=== PATIENT | male | born 1960 | race Caucasian/White ===

== ENCOUNTER 2018-12-04 23:22 | Inpatient (IN) | payer BC ==
[~2018-12-04] VITALS: Ht 172.7 cm; Wt 87.7 kg
[2018-12-05 00:01] LABS: BASOPHILS ABSOLUTE AUTO 0.02 K/mm3 (0.00-0.23); BASOPHILS PERCENT AUTO 0 % (0-2); EOSINOPHILS ABSOLUTE AUTO 0.14 K/mm3 (0.00-0.68); EOSINOPHILS PERCENT AUTO 2 % (0-6); Hematocrit 47.7 % (37.0-53.0); Hemoglobin 16.3 g/dL (13.5-17.5); IMMATURE GRAN ABSOLUTE AUTO 0.01 K/mm3 (0.00-0.10); IMMATURE GRAN PERCENT AUTO 0 % (0-1); LYMPHOCYTES ABSOLUTE AUTO 1.56 K/mm3 (0.84-5.20); LYMPHOCYTES PERCENT AUTO 24 % (21-46); MONOCYTES ABSOLUTE AUTO 0.45 K/mm3 (0.16-1.47); MONOCYTES PERCENT AUTO 7 % (4-13); Mean Corpuscular HGB 30.1 pg (26.0-34.0); Mean Corpuscular HGB Conc 34.2 g/dL (31.5-36.5); Mean Corpuscular Volume 88 fL (80-100); Mean Platelet Volume 8.8 fL (9.1-12.4); NEUTROPHILS ABSOLUTE AUTO 4.43 K/mm3 (1.96-9.15); NEUTROPHILS PERCENT AUTO 67 % (41-73); Platelet Count 272 K/mm3 (150-400); RDW Coefficient Variation 13.2 % (11.7-14.2); RDW Standard Deviation 42.8 fL (35.1-46.3); Red Blood Cell Count 5.41 M/mm3 (4.30-5.90); White Blood Cell Count 6.61 K/mm3 (4.00-11.30)
[2018-12-05 00:23] LABS: Alanine Aminotransfer (ALT/SGP 37 U/L (12-78); Albumin, Blood 4.2 g/dL (3.4-5.0); Albumin/Globulin Ratio 1.1 (0.8-1.8); Alk Phos 78 U/L (50-136); Anion Gap 11 mmol/L (6-16); Aspartate Aminotrans (AST/SGOT 24 U/L (12-37); Bilirubin, Total 0.9 mg/dL (0.1-1.0); Blood Urea Nitrogen 22 mg/dL (8-24); Bun/Creatinine Ratio 22.2 (12.0-20.0); CO2, Blood 24 mmol/L (21-32); Calcium, Blood 9.1 mg/dL (8.5-10.1); Chloride, Blood 108 mmol/L (98-108); Creatinine, Blood 0.99 mg/dL (0.60-1.20); Globulin, Blood 3.7 g/dL (2.2-4.0); Glomerular Filtration Rate >60 (60-); Glucose, Blood 103 mg/dL (70-99); Potassium, Blood 3.2 mmol/L (3.5-5.5); Sodium, Blood 143 mmol/L (136-145); Total Protein, Blood 7.9 g/dL (6.4-8.2)
[2018-12-05] MEDS ORDERED: ATORVASTATIN CA80 MG PO (01:55)
[2018-12-05] MEDS ORDERED: METO25 PO (01:55)
[2018-12-05 03:35] LABS: International Normalized Ratio 0.93; Prothrombin Time Results 9.9 Sec (9.7-11.5)
--- NOTE | 2018-12-05 05:48 | NUR ---
PCU ADMIT NOC SHIFT SUMMARY PATIENT ARRIVED TO UNIT FROM ER AT APPROX 0320. PATIENT AMBULATED W/ STEADY GAIT TO UNIT BED FROM [facility]. PATIENT DENIES ANY CHEST PAIN/PRESSURE OR DISCOMFORT - PATIENT REMAINS IN NSR TO SINUS BERTHA IN THE 50-60'S T/O SHIFT WITH NO CARDIAC EVENTS NOTED PER [employer] GUIDANCE COUNSELOR (CADENCE). HEPARIN GTT START AND PATIENT MEDICATED PER EMAR.PATIENT RESTING WELL W/ AT BEDSIDE T/O SHIFT. PATIENT ALERT AND ORIENTED X4. CALL LIGHT W/I REACH. PATIENT INDPENDANT IN ROOM; REMAINS AT BEDSIDE. WILL CONTINUE TO MONITOR AND GIVE REPORT TO DAYSHIFT RN.
[2018-12-05 08:02] LABS: Hematocrit 46.9 % (37.0-53.0); Hemoglobin 16.2 g/dL (13.5-17.5); Mean Corpuscular HGB Conc 34.5 g/dL (31.5-36.5); Mean Corpuscular Volume 87 fL (80-100); Platelet Count 285 K/mm3 (150-400); RDW Coefficient Variation 13.3 % (11.7-14.2); RDW Standard Deviation 41.7 fL (35.1-46.3); White Blood Cell Count 7.83 K/mm3 (4.00-11.30)
[2018-12-05 08:10] LABS: Alanine Aminotransfer (ALT/SGP 33 U/L (12-78); Albumin/Globulin Ratio 1.2 (0.8-1.8); Alk Phos 76 U/L (50-136); Anion Gap 7 mmol/L (6-16); Aspartate Aminotrans (AST/SGOT 31 U/L (12-37); Bilirubin, Total 1.3 mg/dL (0.1-1.0); Blood Urea Nitrogen 20 mg/dL (8-24); Bun/Creatinine Ratio 22.6 (12.0-20.0); CO2, Blood 24 mmol/L (21-32); Calcium, Blood 9.2 mg/dL (8.5-10.1); Chloride, Blood 111 mmol/L (98-108); Creatinine, Blood 0.89 mg/dL (0.60-1.20); Globulin, Blood 3.3 g/dL (2.2-4.0); Glomerular Filtration Rate >60 (60-); Glucose, Blood 115 mg/dL (70-99); Sodium, Blood 142 mmol/L (136-145); Total Protein, Blood 7.3 g/dL (6.4-8.2)
[2018-12-05 08:32] LABS: Troponin I 0.992 ng/mL (0.000-0.040)
--- NOTE | 2018-12-05 08:40 | NUR ---
AM NOTE. ASSUMED CARE OF PT APROX 0700. PT IS A&Ox4 AND IND IN THE ROOM. PT WAS ADMITTED FOR NSTEMI W/ELEVATED TROPONINS. PT HAS BEEN HYPERTENSIVE. PT DENIES ANY CHEST PAIN AT THIS TIME. L/S CLEAR T/O, PT IS ON RA WITH O2 SATS >95%. BT PRESENT AND HYPERACTIVE, ABD IS SOFT AND NONTENDER TO PALP. PT IS IN NO DITRESS AT THIS TIME. PT'S IS AT THE BEDSIDE. CALL LIGHT IN REACH, BED IS LOCKED AND LOW WILL CONTINUE TO MONITOR.
--- NOTE | 2018-12-05 12:03 | NUR ---
ASSUMED CARE OF PATIENT AT APROX 1200, PT IN PHYSICIAN SUPPORT COORDINATOR AT THIS TIME.
--- NOTE | 2018-12-05 13:20 | NUR ---
PT RETURNED TO ROOM AT APROX 1230 FROM [facility].
[2018-12-05 14:18] LABS: Troponin I 2.94 ng/mL (0.000-0.040)
--- NOTE | 2018-12-05 15:34 | NUR ---
Echocardiogram completed.
--- NOTE | 2018-12-05 18:01 | NUR ---
SHIFT SUMMARY PT POST-PROCEDURE FOR PLACEMENT OF LAD STENTS. R RADIAL SITE HAD INCREASED SWELLING/FIRMNESS AT APROX [address] BAND PLACED ABOVE FIRST ONE. MEDICATED FOR CP WITH NITRO ONCE PER EMAR. 2ND TR BAND DEFLATED AND REMOVED AT APROX 1745, 1ST BAND IS BEING DEFLATED 2CC EVERY 20 MIN PER [employer] SALESMAN STARTED AT 1745. BAND WILL REMAIN IN PLACE FOR ONE HOUR FOLLOWING COMPLETE DEFLATION. TOLERATING PO WITH NO C/O N/V. PT AWARE OF RESTRICTIONS TO R WRIST, ARMBOARD IN PLACE.
[2018-12-05 21:21] LABS: Creatine Kinase MB 19.3 ng/mL (0.0-3.6); Creatine Kinase MB Index 11.3 (0.0-4.0)
[2018-12-05 21:23] LABS: Troponin I 2.91 ng/mL (0.000-0.040)
--- NOTE | 2018-12-05 21:29 | NUR ---
PCU ASSUMED CARE (NOC SHIFT) PATIENT ALERT AND ORIENTED X4 AND INDEPENDENT IN THE ROOM. PATIENT DENIES ANY CHEST PAIN OR DISCOMFORT AT THIS TIME. RESTING IN UNIT BED WITH PATIENT. LUNG SOUNDS CLEAR, RESPIRATIONS E/U ON ROOM AIR AND VSS. ARM BOARD IN PLACE ON RIGHT RADIAL SITE. TR BAND REMOVED. SMALL HEMATOMA NOTED, UNCHANGED FROM DAYSHIFT REPORT. CALL LIGHT W/I REACH. WILL CONTINUE TO MONITOR.
[2018-12-06 03:46] LABS: BASOPHILS ABSOLUTE AUTO 0.02 K/mm3 (0.00-0.23); BASOPHILS PERCENT AUTO 0 % (0-2); EOSINOPHILS ABSOLUTE AUTO 0.11 K/mm3 (0.00-0.68); EOSINOPHILS PERCENT AUTO 1 % (0-6); Hematocrit 43.1 % (37.0-53.0); Hemoglobin 14.2 g/dL (13.5-17.5); IMMATURE GRAN ABSOLUTE AUTO 0.01 K/mm3 (0.00-0.10); IMMATURE GRAN PERCENT AUTO 0 % (0-1); LYMPHOCYTES ABSOLUTE AUTO 0.97 K/mm3 (0.84-5.20); LYMPHOCYTES PERCENT AUTO 12 % (21-46); MONOCYTES ABSOLUTE AUTO 0.62 K/mm3 (0.16-1.47); MONOCYTES PERCENT AUTO 8 % (4-13); Mean Corpuscular HGB 29.5 pg (26.0-34.0); Mean Corpuscular HGB Conc 32.9 g/dL (31.5-36.5); Mean Corpuscular Volume 89 fL (80-100); Mean Platelet Volume 9.2 fL (9.1-12.4); NEUTROPHILS ABSOLUTE AUTO 6.34 K/mm3 (1.96-9.15); NEUTROPHILS PERCENT AUTO 79 % (41-73); Platelet Count 239 K/mm3 (150-400); RDW Coefficient Variation 13.8 % (11.7-14.2); RDW Standard Deviation 44.7 fL (35.1-46.3); Red Blood Cell Count 4.82 M/mm3 (4.30-5.90); White Blood Cell Count 8.07 K/mm3 (4.00-11.30)
[2018-12-06 04:09] LABS: Albumin, Blood 3.4 g/dL (3.4-5.0); Anion Gap 4 mmol/L (6-16); Blood Urea Nitrogen 24 mg/dL (8-24); Bun/Creatinine Ratio 20.7 (12.0-20.0); CHOL/HDL RATIO 3.5; CO2, Blood 29 mmol/L (21-32); Calcium, Blood 8.5 mg/dL (8.5-10.1); Chloride, Blood 110 mmol/L (98-108); Cholesterol 165 mg/dL (50-200); Creatinine, Blood 1.16 mg/dL (0.60-1.20); Glomerular Filtration Rate >60 (60-); Glucose, Blood 106 mg/dL (70-99); HDL Cholesterol 47 mg/dL (>39); LDL/HDL RATIO 1.7; Low Density Lipoprotein Chol 81 mg/dL (0-110); Sodium, Blood 143 mmol/L (136-145); Triglycerides 185 mg/dL (30-160); Very Low Density Lipoprot Chol 37 mg/dL (6-32)
--- NOTE | 2018-12-06 04:42 | NUR ---
PCU NOC SHIFT SUMMARY PATIENT REMAINS ALERT AND ORIENTED X4. DENIES ANY CHEST PAIN OR PRESSURE. ARM BOARD REMAINS IN PLACE ON RIGHT RADIAL WRIST SITE, TEGADERM IN PLACE. NO CHANGE NOTED TO HEMATOMA (SINCE SHIFT CHANGE), NO BLEEDING OR ADDITIONAL SWELLING NOTED. PATIENT SLEPT WELL T/O THE SHIFT WITH AT BEDSIDE. CALL LIGHT W/I REACH, WILL CONTINUE TO MONITOR AND REPORT TO DAYSHIFT RN.
--- NOTE | 2018-12-06 07:27 | NUR ---
Bedside report was received from Natacha Biswas RN. The pt is ambulatory, without any distress or discomfort at this time. Right wrist site from angiogram is swollen, soft, and has an area of bruising about the size of a silver dollar. He denies any pain. NO hematoma, no bleeding noted.
[2018-12-06] MEDS ORDERED: Isosorbide Mono30 MG PO (10:45)
[2018-12-06] MEDS ORDERED: LISI20 PO (10:46)
[2018-12-06] MEDS ORDERED: BRILINTA90 MG PO (10:47)
[2018-12-06] MEDS ORDERED: ASPI81CH PO (10:47)
--- NOTE | 2018-12-06 11:29 | NUR ---
DISCHARGE NOTE PT DISCHARGED AMBULATORY POV WITH FAMILY AND IN NO ACUTE DISTRESS. PT AND FAMILY VERBALIZED UNDERSTANDING OF MEDICATION AND FOLLOW UP INSTRUCTIONS. ALL BELONGINGS SENT HOME WITH PATIENT. IV DISCONTINUED INTACT.
== END 2018-12-06 11:33 | disposition home or self-care (01) | DRG 247 ==
LOC: ER 23:22 → PCU 23:23 → ER 23:23 → PCU 23:24
PROVIDERS: Emergency Medicine; Internal Medicine; Internal Medicine Interventional Cardiology; ADMIT Internal Medicine
PROC: 027034Z Dilation of Coronary Artery, One Artery with Drug-eluting Intraluminal Device, Percutaneous Approach (ICD-10-PCS; principal; 2018-12-05)
PROC: B240ZZ3 Ultrasonography of Single Coronary Artery, Intravascular (ICD-10-PCS; 2018-12-05)
PROC: B2111ZZ Fluoroscopy of Multiple Coronary Arteries using Low Osmolar Contrast (ICD-10-PCS; 2018-12-05)
DX: I21.4 Non-ST elevation (NSTEMI) myocardial infarction (principal); I25.10 Atherosclerotic heart disease of native coronary artery without angina pectoris; I10 Essential (primary) hypertension; E78.5 Hyperlipidemia, unspecified; E87.6 Hypokalemia; I16.0 Hypertensive urgency; F10.10 Alcohol abuse, uncomplicated
CPT/HCPCS: 36415; 71046; 80053; 80061; 80069; 82550; 82553; 83036; 83690; 84484; 85025; 85027; 85347; 85610; 85730; 92978; 93005; 93010; 93306; 93454; 93571; 99152; 99153; 99285-25; C1725; C1753; C1769; C1874; C1887; C1894; C9600; J1644; J2250; J3010; J3480; J7030; J7040; Q9967